=== PATIENT | female | born 2005 | race Caucasian/White ===

== ENCOUNTER 2025-01-24 22:43 | Emergency (ER) | payer OTHER ==
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
[2025-01-24] MEDS ORDERED: LIDOCAINE 4% PATCH ONE (23:06)
[2025-01-24] MEDS ORDERED: KETOROLAC 30 MG/ML INJ ONE (23:06)
[2025-01-24] MEDS ORDERED: ACETAMINOPHEN 500 MG TAB ONE (23:06)
[2025-01-24 23:13] LABS: Specific Gravity 1.008 (1.005-1.030)
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
[2025-01-25 00:18] VITALS: TEMP 97.7
[2025-01-25 00:19] VITALS: BP 104/74; O2SAT 100
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
== END 2025-01-25 00:13 | disposition home or self-care (01) ==
LOC: ER 22:43
DX: M54.50 Low back pain, unspecified (principal); V89.2XXA Person injured in unspecified motor-vehicle accident, traffic, initial encounter
CPT/HCPCS: 81025; 72100; 96372; 99284; J2003